=== PATIENT | male | born 1985 ===

== ENCOUNTER 2016-08-29 04:54 | Emergency (ER) | payer SELFPAY ==
[2016-08-29 05:08] VITALS: BP 113/63; PULSE 85; RESP 18; TEMP 98.4
[2016-08-29] MEDS ORDERED: Sodium Chloride 0.9% 1,000 ML IV STA (05:16)
[2016-08-29 05:35] VITALS: O2SAT 97
--- NOTE | 2016-08-29 05:49 | ED PDOC ---
HPI:Nausea, Vomiting, Diarrhea Time Seen by Provider: 08/29/16 05:02 Chief Complaint (Nursing): Abdominal Pain Chief Complaint (Provider): Abdominal Pain, Diarrhea and Vomiting History Per: Patient History/Exam Limitations: no limitations Onset/Duration Of Symptoms: Days Current Symptoms Are (Timing): Still Present Associated Symptoms: Vomiting, Diarrhea Additional Complaint(s): Adolfo Rankin, a 30 year old male, presents to the ED complaining of abdominal pain, vomiting and diarrhea which started around 7pm last night. The patient reports that he had several episodes of non bloody vomiting and non bloody watery diarrhea. He states that the pain is upper umbilical and cramping. Denies fevers, chills. No PMD Past Medical History Reviewed: Historical Data, Nursing Documentation, Vital Signs Vital Signs: Last Vital Signs Temp 98.4 F 08/29/16 05:05 Pulse 85 08/29/16 05:05 Resp 18 08/29/16 05:05 BP 113/63 08/29/16 05:05 Pulse Ox 97 08/29/16 05:05 - Medical History PMH: Denies: HIV, Chronic Kidney Disease - Family History Family History: States: Unknown Family Hx, Hypertension (mother) - Immunization History Hx Tetanus Toxoid Vaccination: No Hx Influenza Vaccination: No Hx Pneumococcal Vaccination: No - Home Medications Home Medications: Ambulatory Orders Medication Instructions Recorded Ibuprofen [Motrin Tab] 800 mg PO TID PRN #30 tab 02/17/15 Dicyclomine [Dicyclomine HCl] 10 mg PO TID #9 cap 08/29/16 Ondansetron ODT [Zofran ODT] 4 mg PO Q8 PRN #12 odt 08/29/16 - Allergies Allergies/Adverse Reactions: Allergies Allergy/AdvReac Type Severity Reaction Status Date / Time No Known Allergies Allergy Verified 08/29/16 05:08 Review of Systems ROS Statement: Except As Marked, All Systems Reviewed And Found Negative Constitutional: Negative for: Fever, Chills Gastrointestinal: Positive for: Vomiting (non bloody vomiting), Abdominal Pain, Diarrhea (Non bloody water diarrhea) Physical Exam - Reviewed Nursing Documentation Reviewed: Yes Vital Signs Reviewed: Yes - Physical Exam Appears: Positive for: Non-toxic, No Acute Distress (Appears comfortable) Head Exam: Positive for: ATRAUMATIC, NORMAL INSPECTION, NORMOCEPHALIC Skin: Positive for: Normal Color, Warm, Dry Eye Exam: Positive for: Normal appearance, EOMI, PERRL ENT: Positive for: Normal ENT Inspection Neck: Positive for: Normal, Painless ROM, Supple Cardiovascular/Chest: Positive for: Regular Rate, Rhythm, Chest Non Tender. Negative for: Tachycardia Respiratory: Positive for: Normal Breath Sounds. Negative for: Wheezing, Respiratory Distress Gastrointestinal/Abdominal: Positive for: Normal Exam, Bowel Sounds, Soft, Tenderness (Mild epigastric tenderness) Back: Positive for: Normal Inspection Extremity: Positive for: Normal ROM. Negative for: Tenderness, Pedal Edema, Deformity, Swelling Neurologic/Psych: Positive for: Alert, Oriented, Gait - Laboratory Results Result Diagrams: 08/29/16 05:25 08/29/16 05:25 - ECG O2 Sat by Pulse Oximetry: 97 (RA) Pulse Ox Interpretation: Normal - Progress Re-evaluation Time: 06:31 Condition: Re-examined, Improved Medical Decision Making Medical Decision Makin Initial Impression: 30 year old male presenting with vomiting and diarrhea Differentials: Acute Gastroenteritis, Possible Colitis, Rule out Pancreatitis Initial Plan: * Comp Metabolic Panel * Lipase * CBC * Bentyl 10mg PO * NS 1000mls IV 1000mls/hr * Pepcid 20mg IVP * Zofran 4mg IV * Reevaluation Scribe Attestation Documented by Sonali Fonseca acting as a scribe for Joel Chappell MD. Provider Attestation All medical record entries made by the Scribe were at my direction and personally dictated by me. I have reviewed the chart and agree that the record accurately reflects my personal performance of the history, physical exam, medical decision making, and the department course for this patient. I have also personally directed, reviewed, and agree with the discharge instructions and disposition. Disposition - Clinical Impression Clinical Impression: Vomiting and diarrhea - Patient ED Disposition Is Patient to be Admitted: No Doctor Will See Patient In The: Office Counseled Patient/Family Regarding: Studies Performed, Diagnosis, Need For Followup - Disposition Referrals: [facility] [Outside] Disposition: Routine/Home Disposition Time: 06:32 Condition: GOOD Additional Instructions: Return for worsening. Follow up with your PCP in 2-3 days. Prescriptions: Dicyclomine [Dicyclomine HCl] 10 mg PO TID #9 cap Ondansetron ODT [Zofran ODT] 4 mg PO Q8 PRN #12 odt PRN Reason: Nausea/Vomiting Instructions: Gastroenteritis (DC)
[2016-08-29 05:52] LABS: BASO % 0.2 % (0.0-2.0); EOS % 0.3 % (0.0-4.0); HEMOGLOBIN 15.2 g/dL (12.0-18.0); LYMPH # 0.9 K/uL (1.0-4.3); LYMPH % 5.3 % (20.0-40.0); MEAN CELL VOLUME 90.2 fl (80.0-94.0); MEAN CORPUSCULAR HEMOGLOBIN 29.7 pg (27.0-31.0); MEAN CORPUSCULAR HGB CONC 32.9 g/dL (33.0-37.0); MEAN PLATELET VOLUME 8.5 fl (7.2-11.7); MONO # 0.9 K/uL (0.0-0.8); MONO % 5.6 % (0.0-10.0); NEUT # 14.4 K/uL (1.8-7.0); NEUT % 88.6 % (50.0-75.0); PLATELET COUNT 253 K/uL (130-400); RED CELL DISTRIBUTION WIDTH 13.3 % (11.5-14.5); WHITE BLOOD COUNT 16.2 K/uL (4.8-10.8)
[2016-08-29 06:06] LABS: ALB/GLOB RATIO 1.5 (1.0-2.1); ALBUMIN 4.8 g/dL (3.5-5.0); ALT/SGPT 85 U/L (21-72); AST/SGOT 46 U/L (17-59); BLOOD UREA NITROGEN 16 mg/dl (9-20); CALCIUM 9.4 mg/dL (8.4-10.2); GFR AFRICAN-AMERICAN > 60; GFR NON-AFRICAN AMERICAN > 60; LIPASE 107 U/L (23-300)
[2016-08-29 06:42] LABS: LYMPHOCYTE 4 % (20-50); MONOCYTE 3 % (0-10); NEUTROPHIL 93 % (42-75); PLATELET ESTIMATE NORMAL (NORMAL); TOTAL CELLS COUNTED 100
== END 2016-08-29 06:47 | disposition home or self-care (01) ==
LOC: H.ER 04:54
DX: R11.10 Vomiting, unspecified (principal); R19.7 Diarrhea, unspecified
CPT/HCPCS: 80053; 83690; 85025; 96365; 96375; 99283; J2405; J7040

== ENCOUNTER 2017-03-22 16:24 | Emergency (ER) | payer OTHER ==
[2017-03-22 17:01] VITALS: BP 119/71; PULSE 62; RESP 18; TEMP 98.5; O2SAT 98
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
== END 2017-03-22 20:26 | disposition home or self-care (01) ==
LOC: H.ER 16:24
DX: S20.211A Contusion of right front wall of thorax, initial encounter (principal); S20.219A Contusion of unspecified front wall of thorax, initial encounter; V43.52XA Car driver injured in collision with other type car in traffic accident, initial encounter; Y92.410 Unspecified street and highway as the place of occurrence of the external cause
CPT/HCPCS: 71101; 96372; 99282; J1885